=== PATIENT | male | born 1945 | race Hispanic/Latino ===

== ENCOUNTER 2018-09-09 17:53 | Emergency (ER) | payer MEDICARE, BC ==
[2018-09-09 18:09] VITALS: RESP 18
[2018-09-09] MEDS ORDERED: TDAP Vaccine 0.5 mL Syr IM ONE (18:24)
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
[2018-09-09 20:03] VITALS: BP 136/84; PULSE 56; O2SAT 97
--- NOTE | 2018-09-10 09:45 | CT ---
Date of service: 09/09/2018 PROCEDURE: CT HEAD WITHOUT CONTRAST. HISTORY: trauma COMPARISON: None available. TECHNIQUE: Axial computed tomography images were obtained through the head/brain without intravenous contrast. Radiation dose: Total exam DLP = 1106.76 mGy-cm. This CT exam was performed using one or more of the following dose reduction techniques: Automated exposure control, adjustment of the mA and/or kV according to patient size, and/or use of iterative reconstruction technique. FINDINGS: HEMORRHAGE: No intracranial hemorrhage. BRAIN: No mass effect or edema. Atrophy. Chronic microvascular ischemic changes. VENTRICLES: Unremarkable. No hydrocephalus. CALVARIUM: Unremarkable. PARANASAL SINUSES: Unremarkable as visualized. No significant inflammatory changes. MASTOID AIR CELLS: Unremarkable as visualized. No inflammatory changes. OTHER FINDINGS: None. IMPRESSION: No acute intracranial pathology. Age-related changes.
--- NOTE | 2018-09-10 09:46 | RAD ---
Date of service: 09/09/2018 PROCEDURE: Radiographs of the Left Forearm HISTORY: pain COMPARISON: None available. TECHNIQUE: Frontal and lateral views obtained. 2 views obtained. FINDINGS: BONES: Intra-articular fracture of the base of the 5th metacarpal. JOINT SPACES: Unremarkable. OTHER FINDINGS: None. IMPRESSION: Intra-articular fracture of the base of the 5th metacarpal.
--- NOTE | 2018-09-10 10:08 | RAD ---
Date of service: 09/09/2018 PROCEDURE: Left Knee Radiographs. HISTORY: Pain. COMPARISON: None. TECHNIQUE: 2 views obtained. FINDINGS: BONES: No acute fracture. JOINTS: Mild tricompartmental narrowing. Chondrocalcinosis within the lateral tibial femoral compartment. JOINT EFFUSION: None. OTHER FINDINGS: None. IMPRESSION: No demonstrated fracture or dislocation.
== END 2018-09-09 21:24 | disposition home or self-care (01) ==
LOC: ED 17:53
DX: S09.90XA Unspecified injury of head, initial encounter (principal); S62.317A Displaced fracture of base of fifth metacarpal bone, left hand, initial encounter for closed fracture; V09.20XA Pedestrian injured in traffic accident involving unspecified motor vehicles, initial encounter; Y93.55 Activity, bike riding; E11.9 Type 2 diabetes mellitus without complications; I10 Essential (primary) hypertension; Z23 Encounter for immunization